=== PATIENT | female | born 1975 | race Caucasian/White ===

== ENCOUNTER → 2024-10-13 | Day surgery (SDC) | payer OTHER | END | disposition home or self-care (01) | LOC: JRADUS-SUR 12:05 → EDSTATUS 13:00 | PROVIDERS: ATTEND Surgery | PROC: BH01ZZZ Plain Radiography of Left Breast (ICD-10-PCS; principal; 2024-10-13) | DX: N63.20 Unspecified lump in the left breast, unspecified quadrant (principal) | CPT/HCPCS: 19281; A4648 ==